=== PATIENT | male | born 1980 | race Caucasian/White ===

== ENCOUNTER 2017-10-23 14:35 | Emergency (ER) | payer MEDICAID ==
[~2017-10-23] VITALS: Ht 188 cm; Wt 106.1 kg
[~2017-10-23 14:35] MED LIST: IBUPROFEN600 MG ORAL; NORCO 10/3251 EA ORAL
--- NOTE | 2017-10-23 15:09 | Emergency Room Report ---
History of Present Illness General Chief Complaint: General Complaint Source: Patient Present Illness HPI 36 YO Male presents to the ED c/o LBP x 3 weeks denies trauma or fall. Pt .also reports posterolateral left sided rib cage pain. Pt. denies cough, denies SOB or difficulty breathing. states rib pain has been for about 1 week. reports THC use. pt. denies recent spinal procedure or hx of ca. pt. reports hx of intermittent back pain flares in the past. denies sciatica. Denies numbness tingling or loss of sensation or gross motor movements of the extremities, incontinence of bowel or bladder. Denies rashes. Denies CP, Palpitations, LOC, AMS, dizziness, Changes in Vision, weakness or a sudden severe headache. Allergies: Coded Allergies: ACETAMINOPHEN (Unverified Allergy, Unknown, 11/09/13) HALOPERIDOL (Unverified Allergy, Unknown, 11/09/13) PENICILLINS (Unverified Allergy, Unknown, 11/09/13) Patient History Past Medical History: see triage record Past Surgical History: none Pertinent Family History: none Reviewed Nursing Documentation: PMH: Agreed; PSxH: Agreed Nursing Documentation-PMH Past Medical History: No History, Except For Hx Cardiac Problems: No - HEP C History Of Psychiatric Problem: Yes - Bipolar disorder, Schizophrenia Review of Systems All Other Systems: negative except mentioned in HPI Physical Exam Vital Signs Date Time Temp Pulse Resp B/P (MAP) Pulse Ox O2 Delivery O2 Flow Rate FiO2 10/23/17 14:47 97.7 76 16 133/86 97 Room Air 97.7 Sp02 EP Interpretation: reviewed, normal General Appearance: no apparent distress, alert, GCS 15, non-toxic Head: normocephalic, atraumatic ENT: hearing grossly normal, normal voice Neck: full range of motion Respiratory: lungs clear, normal breath sounds, no respiratory distress, no wheezing, speaking full sentences, other - TTP to the lateral/posterior upper left ribcage, bruise noted where pt. is localizing pain. Cardiovascular #1: regular rate, rhythm Gastrointestinal: non tender, soft Rectal: deferred Genitourinary: normal inspection, no CVA tenderness Musculoskeletal: back normal, gait/station normal, normal range of motion, tender - upper left posteriolateral ribs with contusion. No midline spinal ttp. Neurologic: alert, oriented x3, responsive, motor strength/tone normal, sensory intact, normal gait, speech normal, grossly normal Psychiatric: judgement/insight normal Skin: no rash, warm/dry, well hydrated, other - contusion to left upper posteriolateral rib cage, appears healing, several days old. Medical Decision Making PA Attestation Dr. Horowitz is my supervising Physician whom patient management has been discussed with. Diagnostic Impression: Primary Impression: Back pain Qualified Codes: M54.9 - Dorsalgia, unspecified Additional Impression: Contusion of rib on left side Qualified Codes: S20.212A - Contusion of left front wall of thorax, initial encounter ER Course 36 YO Male presents to the ED c/o LBP x 3 weeks denies trauma or fall. Pt .also reports posterolateral left sided rib cage pain. Pt. denies cough, denies SOB or difficulty breathing. states rib pain has been for about 1 week. reports THC use. pt. denies recent spinal procedure or hx of ca. pt. reports hx of intermittent back pain flares in the past. denies sciatica. Denies numbness tingling or loss of sensation or gross motor movements of the extremities, incontinence of bowel or bladder. Denies rashes. Denies CP, Palpitations, LOC, AMS, dizziness, Changes in Vision, weakness or a sudden severe headache. Ddx considered but are not limited to Fracture, dislocation, contusion, Sprain/ Strain/Spasm, Epidural abscess, Neoplastic mets shingles, chest wall pain, spontaneous pneumo just to name a few. Vital signs: are WNL, pt. is afebrile H&PE are most consistent with musculoskeletal injury will perform imaging to r/ o fractures/dislocations. ORDERS: - CXR: unremarkable ED INTERVENTIONS: - Lidoderm patch tp. DISCHARGE: At this time pt. is stable for d/c to home. Will provide printed patient care instructions, and any necessary prescriptions. Care plan and follow up instructions have been discussed with the patient prior to discharge. Chest X-Ray Diagnostic Results Chest X-Ray Diagnostic Results : Chest X-Ray Ordered: Yes # of Views/Limited/Complete: 1 View Indication: Chest Pain EP Interpretation: Yes PA Xray: Interpretation reviewed, by supervising MD, and agrees with findings. Interpretation: no consolidation, no effusion, no pneumothorax, no acute cardiopulmonary disease Impression: No acute disease Electronically Signed by: Dania Adams PA-C Last Vital Signs Date Time Temp Pulse Resp B/P (MAP) Pulse Ox O2 Delivery O2 Flow Rate FiO2 10/23/17 14:47 97.7 76 16 133/86 97 Room Air 97.7 Disposition: HOME, SELF-CARE Condition: Stable Scripts Lidocaine (Lidoderm) 1 Each Adh..patch 1 PATCH TOPIC DAILY, #30 PATCH 0 Refills Patch(es) may remain in place for up to 12 hours in any 24-hour period. Prov: Dania Adams 10/23/17 Ibuprofen* (MOTRIN*) 600 Mg Tablet 600 MG ORAL THREE TIMES A DAY, #30 TAB 0 Refills Prov: Dania Adams 10/23/17 Patient Instructions: Rib Contusion Additional Instructions: Take medications as directed. Follow up with a Primary Care Provider in 3-5 days, even if your symptoms have resolved. --Please review list of primary care clinics, if you do not already have a primary care provider Return sooner to ED if new symptoms occur, or current symptoms become worse. - Please note that this Emergency Department Report was dictated using [employer] repair troubleshooter technology software, occasionally this can lead to erroneous entry secondary to interpretation by the dictation equipment. Dania Adams Oct 23, 2017 15:09
[2017-10-23] MEDS ORDERED: LIDODERM700 M1 TOPIC (15:30)
[2017-10-23] MEDS ORDERED: IBUPROFEN600 MG ORAL (15:30)
[2017-10-23 15:41] VITALS: BP 128/82
--- NOTE | 2017-10-23 16:32 | Diagnostic Imaging Report ---
Indication: Chest pain Technique: One view of the chest Comparison: 11/09/2013 Findings: Lungs and pleural spaces are clear. Heart size is normal . No significant interim change Impression: No acute process
== END 2017-10-23 15:29 | disposition home or self-care (01) ==
LOC: EMR 15:11
DX: M54.5 Low back pain (principal); S20.212A Contusion of left front wall of thorax, initial encounter; X58.XXXA Exposure to other specified factors, initial encounter; Y92.9 Unspecified place or not applicable; Z88.6 Allergy status to analgesic agent; Z88.0 Allergy status to penicillin; F20.9 Schizophrenia, unspecified; F31.9 Bipolar disorder, unspecified
CPT/HCPCS: 71045; 99284